=== PATIENT | female | born 1990 | race African-American/Black ===

== ENCOUNTER 2025-07-15 09:03 | Inpatient (IN) | payer OTHER, MEDICAID ==
[~2025-07-15] VITALS: Ht 165.1 cm; Wt 62.0 kg
[2025-07-15 09:05] VITALS: TEMP 36.8; O2SAT 98
[2025-07-15 09:38] LABS: BASOPHILS % 0.8 % (0.0-2.0); EOSINOPHILS % 2.2 % (0.0-5.0); HEMATOCRIT. 38.1 % (36.0-48.0); HEMOGLOBIN. 12.5 g/dL (12.0-16.0); LYMPHOCYTES % 29.9 % (20.0-50.0); MEAN PLATELET VOLUME 7.5 fl (7.4-10.4); MONOCYTES % 6.0 % (2.0-8.0); NEUTROPHILS % 61.1 % (40.0-76.0); PLATELET 387 x1000/uL (130-400); RED BLOOD CELL COUNT 4.66 mill/uL (4.2-5.4); RED CELL DISTRIBUTION WIDTH 13.5 % (11.6-14.6)
[2025-07-15] MEDS: ACETAMINOPHEN 325MG TABLET PO ONE (09:40)
[2025-07-15 09:47] LABS: INR 1.0
[2025-07-15 09:50] LABS: CREATININE 0.8 mg/dL (0.6-1.0); UREA NITROGEN BLOOD 6 mg/dL (9-23)
[2025-07-15 09:52] LABS: ASPARTATE AMINOTRANSFERASE 20 IU/L (<34); BILIRUBIN DIRECT < 0.1 mg/dL (<=3.0); BILIRUBIN TOTAL 0.3 mg/dL (0.1-1.0); PROTEIN TOTAL 6.5 g/dL (6.0-8.3)
[2025-07-15 09:54] LABS: HCG SCREEN NEGATIVE
[2025-07-15 10:24] VITALS: TEMP 98.2
[2025-07-15] MEDS ORDERED: DOCUSATE SODIUM 100MG CAPSULE PO PRN (11:00)
[2025-07-15] MEDS ORDERED: ACETAMINOPHEN 650MG SUPP PR PRN (11:00)
[2025-07-15] MEDS ORDERED: GUAIFENESIN 200MG/10ML SUGAR FREE UDC PO PRN (11:00)
[2025-07-15] MEDS ORDERED: CLONIDINE 0.1MG TABLET PO PRN (11:00)
[2025-07-15] MEDS ORDERED: ACETAMINOPHEN 650MG/20.3ML UDC GT PRN (11:00)
[2025-07-15] MEDS ORDERED: MAGNESIUM/ALUMINUM HYDROXIDE/SIMETHICONE 30ML UDC PO PRN (11:00)
[2025-07-15] MEDS: THIAMINE HCL 100MG TABLET PO SCH (11:15)
[2025-07-15] MEDS: IOHEXOL-350 100 ML BOTTLE ONE (11:31)
[2025-07-15] MEDS ORDERED: LORAZEPAM 2MG/ML UD SYRINGE IV PRN (12:30)
[2025-07-15 13:53] LABS: TRIGLYCERIDE 103.0 mg/dL (0-150)
[2025-07-15 13:54] LABS: LDL CHOLESTEROL 86.0 mg/dL (5-100)
[2025-07-15 15:42] VITALS: BP 113/71; PULSE 75; RESP 16; O2SAT 98
[2025-07-15 15:52] LABS: CLARITY URINE CLOUDY (CLEAR); COLOR URINE YELLOW (YELLOW); SPECIFIC GRAVITY URINE 1.056 (1.005-1.030)
[2025-07-15 15:53] LABS: GLUCOSE URINE NEGATIVE (NEGATIVE); KETONES URINE TRACE (NEGATIVE); LEUKOCYTE ESTERASE URINE NEGATIVE (NEGATIVE); NITRITE URINE NEGATIVE (NEGATIVE); OCCULT BLOOD URINE NEGATIVE (NEGATIVE); PH URINE 6.5 (4.5-8.0); PROTEIN URINE TRACE (NEGATIVE); UROBILINOGEN URINE 1.0 E.U./dL (0.2-1.0)
[2025-07-15 15:58] LABS: *AMPHETAMINES SCREEN URINE NEGATIVE (NEGATIVE); *BARBITURATES SCREEN URINE NEGATIVE (NEGATIVE); *BENZODIAZEPINES SCREEN URINE NEGATIVE (NEGATIVE); *COCAINE SCREEN URINE NEGATIVE (NEGATIVE)
[2025-07-15 15:59] LABS: CANNABINOID URINE SCREEN NEGATIVE (NEGATIVE); ECSTASY MDMA SCREEN URINE NEGATIVE (NEGATIVE); METHADONE URINE SCREEN NEGATIVE (NEGATIVE); OPIATES URINE SCREEN NEGATIVE (NEGATIVE); PHENCYCLIDINE URINE SCREEN NEGATIVE (NEGATIVE)
[2025-07-15 16:39] LABS: BACTERIA URINE 3+; RBC URINE 0-2 /hpf (0-2); SQUAMOUS EPITHELIAL CELL URINE 2+ /lpf (RARE/1+); WBC URINE 0-2 /hpf (0-2)
[2025-07-15 19:00] LABS: CREATININE 0.8 mg/dL (0.6-1.0)
[2025-07-15 19:01] LABS: TROPONIN I HIGH SENSITIVITY < 4 ng/L (3.0-34); UREA NITROGEN BLOOD 7 mg/dL (9-23)
[2025-07-15] MEDS ORDERED: FOLIC ACID 1 MG, THIAMINE HCL 100 MG, MVI, ADULT NO.1 10 ML in DEXTROSE 5% WATER 1,000 ML IV ONE (20:00)
[2025-07-15] MEDS ORDERED: ATORVASTATIN CALCIUM 40MG TABLET PO SCH (21:00)
[2025-07-16] MEDS ORDERED: PANTOPRAZOLE SODIUM 40 MG/VIAL IV SCH (09:00)
[2025-07-16] MEDS ORDERED: ASPIRIN 81MG TABLET PO SCH (09:00)
[2025-07-16] MEDS ORDERED: CLOPIDOGREL 75MG TABLET PO SCH (09:00)
[2025-07-16] MEDS ORDERED: FOLIC ACID 1MG TABLET PO SCH (09:00)
== END 2025-07-15 19:00 | disposition left against medical advice (07) | DRG 948 ==
LOC: ER 09:19 → 6WST 10:20
PROVIDERS: ADMIT Internal Medicine; ATTEND Internal Medicine
DX: R53.1 Weakness (principal); F10.129 Alcohol abuse with intoxication, unspecified; Z53.29 Procedure and treatment not carried out because of patient's decision for other reasons; F17.200 Nicotine dependence, unspecified, uncomplicated; F19.10 Other psychoactive substance abuse, uncomplicated; F41.9 Anxiety disorder, unspecified; G51.0 Bell's palsy; Y90.6 Blood alcohol level of 120-199 mg/100 ml; Z82.3 Family history of stroke; Z82.49 Family history of ischemic heart disease and other diseases of the circulatory system
CPT/HCPCS: 36415; 70496; 70498; 71045; 80048; 80061; 80076; 80305; 80320; 81003; 82550; 83036; 84484; 84703; 85025; 93005; 93970; 99291; J3411; J3490; J7070; Q9967; G0480